=== PATIENT | male | born 1970 | race Caucasian/White ===

== ENCOUNTER 2020-10-06 03:12 | Observation (INO) | payer OTHER, SELFPAY ==
[2020-10-06] MEDS ORDERED: Dextrose 5% in Water 1,000 ML IV PRN (05:55)
[2020-10-06] MEDS ORDERED: hydrALAZINE 20 MG/ML VIAL SLOW IVP PRN (05:55)
[2020-10-06] MEDS ORDERED: Dextrose 50% Abboject 50 ML SYRINGE SLOW IVP PRN (05:55)
[2020-10-06] MEDS ORDERED: Ondansetron ODT 4 MG TAB PO PRN (05:55)
[2020-10-06] MEDS ORDERED: Ondansetron PF 4 MG/2 ML Vial IVP PRN (05:55)
[2020-10-06] MEDS ORDERED: traMADol HCl 50 MG TAB PO PRN ×2 (05:57)
[2020-10-06] MEDS ORDERED: Cyclobenzaprine 10 MG TAB PO PRN (05:57)
[2020-10-06] MEDS ORDERED: Ketorolac Tromethamine 30 MG/ML VIAL IVP SCH (06:00)
[2020-10-06] MEDS: Acetaminophen 500 MG TAB PO SCH ×3 (06:56→18:53)
[2020-10-06] MEDS: Ibuprofen 800 MG TAB PO SCH ×3 (06:56→21:06)
[2020-10-06] MEDS: Sodium Chloride 0.9% 1,000 ML IV SCH ×3 (06:57→23:51)
[2020-10-06 08:20] VITALS: BMI 24.7
[2020-10-06] MEDS: Famotidine/PF 20 mg/2ml Vial SLOW IVP SCH ×2 (09:22→21:07)
[2020-10-06] MEDS ORDERED: Morphine 10 MG/ML VIAL ONE (13:48)
[2020-10-06] MEDS ORDERED: Midazolam HCl 2 mg/2 ml Vial ONE (13:48)
[2020-10-06] MEDS ORDERED: SUGAMMADEX SODIUM 200 MG/2 ML VIAL ONE (13:48)
[2020-10-06] MEDS ORDERED: Fentanyl 250 MCG/5 ML VIAL ONE (13:48)
[2020-10-06] MEDS ORDERED: Chlorhexidine Gluconate 15 ML UDCUP SSP ONE (13:54)
[2020-10-06] MEDS ORDERED: Lidocaine 1% w/Epinephrine 1:100K 20 ML VIAL ONE (14:01)
[2020-10-06] MEDS ORDERED: Bacitracin Zinc Ointment 30 gm TUBE ONE (14:01)
[2020-10-06] MEDS: Oxazepam 10 MG CAP PO SCH ×2 (14:18→22:01)
[2020-10-06] MEDS ORDERED: Dexamethasone 20 MG/5 ML VIAL ONE (14:35)
[2020-10-06] MEDS ORDERED: ePHEDrine Sulfate 50 MG/10 ML VIAL ONE (14:35)
[2020-10-06] MEDS ORDERED: Rocuronium Bromide 10 MG/ML (10ML VIAL) ONE (14:35)
[2020-10-06] MEDS ORDERED: Ondansetron PF 4 MG/2 ML Vial ONE (14:35)
[2020-10-06] MEDS ORDERED: PROPOFOL 200 MG/20 ML VIAL ONE (14:35)
[2020-10-06] MEDS ORDERED: Lidocaine 1% PF 5 ML VIAL ONE (14:35)
[2020-10-06] MEDS ORDERED: Fentanyl 100 MCG/2 ML VIAL ONE (16:11)
[2020-10-06] MEDS: Chlorhexidine Gluconate 15 ML UDCUP SSP SCH (21:06)
[2020-10-06] MEDS: CEFAZOLIN 2 GM in Premix Bag 1 BAG IVPB SCH (22:01)
[2020-10-07] MEDS: Acetaminophen 500 MG TAB PO SCH ×3 (00:18→12:25)
[2020-10-07 05:44] LABS: #Lymphocytes 2.1 thou/uL (1.20-3.40); #Monocytes 1.1 thou/uL (0.11-0.59); #Neutrophils 5.1 thou/uL (1.40-6.50); %Basophils 0.2 % (0.0-1.0); %Eosinophils 0.1 % (0.0-10.0); %Lymphocytes 25.2 % (21.0-51.0); %Monocytes 12.8 % (0.0-10.0); %Neutrophils 61.7 % (42.0-75.0); Hemoglobin 12.9 g/dL (14.0-18.0); Mean Corpuscular HGB CONC 32.8 g/dL (32.0-36.0); Mean Corpuscular Hemoglobin 31.7 pg (27.0-31.0); Mean Corpuscular Volume 96.6 fL (78.0-98.0); Mean Platelet Volume 8.4 fL (7.4-10.4); Platelet Count 213 thou/uL (130-400); RBC Distribution Width 12.3 % (11.5-14.5); Red Blood Cell (RBC) Count 4.06 mill/uL (4.70-6.10); White Blood Cell (WBC) Count 8.2 thou/uL (4.8-10.8)
[2020-10-07 06:09] LABS: Anion Gap 10 mmol/L (10-20); BUN (Urea Nitrogen) 8 mg/dL (8.9-20.6); Calc. Creatinine Clearance 146 mL/min (70-130); Calcium 7.7 mg/dL (7.8-10.44); Carbon Dioxide 26 mmol/L (22-29); Chloride 102 mmol/L (98-107); Glucose 134 mg/dL (70-105); Sodium 134 mmol/L (136-145)
[2020-10-07] MEDS: Oxazepam 10 MG CAP PO SCH ×2 (07:30→14:54)
[2020-10-07] MEDS: Ibuprofen 800 MG TAB PO SCH ×2 (07:30→14:54)
[2020-10-07] MEDS: CEFAZOLIN 2 GM in Premix Bag 1 BAG IVPB SCH (07:30)
[2020-10-07] MEDS ORDERED: Folic Acid 1 MG TAB PO SCH (09:00)
[2020-10-07] MEDS ORDERED: Thiamine 100 MG TAB PO SCH (09:00)
[2020-10-07] MEDS: Sodium Chloride 0.9% 1,000 ML IV SCH (09:20)
[2020-10-07] MEDS: Chlorhexidine Gluconate 15 ML UDCUP SSP SCH (09:21)
[2020-10-07] MEDS: Famotidine/PF 20 mg/2ml Vial SLOW IVP SCH (09:21)
[2020-10-07] MEDS ORDERED: AMOXicillin 250 MG CAP PO SCH (15:00)
[2020-10-07 15:35] VITALS: BP 121/73; TEMP 98.1
== END 2020-10-07 16:21 | disposition home or self-care (01) ==
LOC: SURG A 04:40 → INTOOBSV 04:40
PROVIDERS: ADMIT Specialist; ATTEND Specialist
PROC: 0NSM04Z Reposition Right Zygomatic Bone with Internal Fixation Device, Open Approach (ICD-10-PCS; principal; 2020-10-06)
DX: S02.40EA Zygomatic fracture, right side, initial encounter for closed fracture (principal); S02.831A Fracture of medial orbital wall, right side, initial encounter for closed fracture; S02.841A Fracture of lateral orbital wall, right side, initial encounter for closed fracture; S02.31XA Fracture of orbital floor, right side, initial encounter for closed fracture; F10.120 Alcohol abuse with intoxication, uncomplicated; F17.210 Nicotine dependence, cigarettes, uncomplicated; Y09 Assault by unspecified means; Y90.8 Blood alcohol level of 240 mg/100 ml or more
CPT/HCPCS: 36415; 70486; 80048; 85025; 96365; 96375; 96376; C1713; G0378; J0690; J1100; J1885; J2250; J2270; J2405; J2704; J3010; S0028